=== PATIENT | male | born 1965 | race Caucasian/White ===

== ENCOUNTER → 2022-07-23 | Outpatient (CLI) | payer BC ==
[~2022-07-23] VITALS: Ht 167 cm; Wt 103.0 kg
[2022-07-23] MEDS: CATHETER FLUSH 10 ML SYR IVP PRN ×2 (07:25→07:27)
[2022-07-23 08:17] VITALS: BP 158/91
--- NOTE | 2022-07-23 19:26 | STRESS TEST ---
DATE OF SERVICE: 07/23/2022 RESTING AND POST REGADENOSON TECHNETIUM-99M TETROFOSMIN SPECT CT IMAGING ORDERING PHYSICIAN: Dr. Machado. PRIMARY PHYSICIAN: [ ]. CLINICAL DIAGNOSIS: Syncope. Baseline images were carried out after injection of 10.24 mCi of technetium-99m tetrofosmin. This was followed by exercise on a treadmill. Mike protocol was employed. After the patient had attained more than 85% of maximum predicted heart rate and had indicated that he would not be able to go for more than another minute, 29 mCi of technetium-99m Tetrofosmin were injected and the exercise was continued for another minute. The test was stopped on account of fatigue. Heart rate response to exercise was normal. Blood pressure response to exercise was somewhat hypertensive. There was considerable baseline artifact at peak exercise. Review of images at rest and following stress does not indicate any significant perfusion defects consistent with myocardial ischemia or infarction. Gated images show normal global left ventricular systolic function with normal regional wall motion. Left ventricular ejection fraction is calculated to be 72%. During the study, the patient had attained 98% of maximum predicted heart rate. CONCLUSIONS: 1. No evidence of any significant myocardial ischemia or infarction on this study. 2. Normal regional wall motions. 3. Normal global left ventricular systolic function with a calculated ejection fraction of 72%. Job ID: [id number] DocumentID: [id number] Dictated Date: 07/23/2022 14:58:54 Time Study Technician Date: 07/23/2022 19:24:00 Dictated By: WILFREDO MACHADO MD; MA; FACP; FACC;
== END ==
LOC: CARD 07:04
PROVIDERS: ATTEND Internal Medicine Cardiovascular Disease
DX: R55 Syncope and collapse (principal)
CPT/HCPCS: 78452; 93017; 93225; 93226; A9502

== ENCOUNTER → 2022-08-31 | Outpatient (CLI) | payer BC ==
[~2022-08-31] VITALS: Ht 167.6 cm; Wt 103.2 kg
[2022-08-31] VITALS (26 sets, daily range): BP systolic 108–132; BP diastolic 63–94
[~2022-08-31] MED LIST: ATROPINE INJECTION 1 MG/10 ML SYR (ABBOTT) ONE; NS IV 1000 ML 1,000 ML IV SCH; NS IV 1000 ML 1,000 ML ONE
== END ==
LOC: CARD 07:16
PROVIDERS: ATTEND Internal Medicine Cardiovascular Disease
DX: R55 Syncope and collapse (principal); I10 Essential (primary) hypertension
CPT/HCPCS: 93660